=== PATIENT | male | born 1955 | race Caucasian/White ===

== ENCOUNTER → 2025-08-05 | Outpatient (CLI) | payer OTHER, SELFPAY ==
[2025-08-05 16:53] LABS: PSA,Total- Diagnostic 3.87 ng/mL (0.00-4.00)
== END | disposition home or self-care (01) ==
LOC: LAB 15:14
PROVIDERS: PCP Student in an Organized Health Care Education/Training Program; Referring Provider Urology; Visit Provider Urology
DX: R97.20 Elevated prostate specific antigen [PSA] (principal)
CPT/HCPCS: 36415; 84153